=== PATIENT | female | born 1980 | race Caucasian/White ===

== ENCOUNTER 2017-01-12 06:18 | Day surgery (SDC) | payer OTHER ==
[~2017-01-12 06:18] MED LIST: Buffered Lidocaine 1% SYR 3ML* 3 ML/SYR SYRINGE INTRADERM ONE; Dexamethasone IV* 4 MG/ML 1 ML (4 MG) IV SLOW PU ONE; Dexamethasone IV* 4 MG/ML 1 ML (4 MG) ONE; Famotidine IV* 10 MG/ML 2 ML (20 mg) IV ONE; Famotidine IV* 10 MG/ML 2 ML (20 mg) ONE
[2017-01-12 06:26] LABS: Manual Entry Verification CAR0052; UR Preg Internal Control QC Line Present; UR Preg Kit Lot# 6060104
[2017-01-12 07:20] LABS: Hematocrit 37 % (35-47); Hemoglobin 12.6 g/dl (12.0-16.0); Mean Corpuscular HGB Conc 34 g/dl (31-36); Mean Corpuscular Hemoglobin 30 pg (27-31); Mean Corpuscular Volume 89 fL (80-97); Mean Platelet Volume 9 um3 (7.4-10.4); Red Blood Count 4.15 10^6/ul (4.0-5.4); Red Cell Distribution Width 14 % (10.5-15); White Blood Count 6.1 10^3/ul (3.5-10.8)
[2017-01-12] MEDS ORDERED: Ketorolac INJ* 30 MG/ML 1 ML VIAL ONE (07:22)
[2017-01-12] MEDS ORDERED: Midazolam* 1 MG/ML 5 ML VIAL (5 MG) ONE (07:22)
[2017-01-12] MEDS ORDERED: Lidocaine 2% PF * 5 ML VIAL ONE (07:22)
[2017-01-12] MEDS ORDERED: Atracurium* 10 MG/ML 10 ML VIAL ONE (07:22)
[2017-01-12] MEDS ORDERED: Propofol* 10 MG/ML 20 ML BTL IV PUSH ONE (07:22)
[2017-01-12] MEDS ORDERED: fentaNYL* 50 MCG/ML 5 ML VIAL (250 MCG VIAL) ONE (07:22)
[2017-01-12] MEDS ORDERED: Ondansetron INJ* 2 MG/ML VIAL ONE (07:22)
[2017-01-12] MEDS ORDERED: Bupivacaine 0.5% W/EPI SDV* 30 ML VIAL ONE (07:23)
[2017-01-12] MEDS ORDERED: Methylene Blue 1%* 10 ML VIAL ONE (07:29)
[2017-01-12] MEDS ORDERED: oxyCODONE/Acetamin 5/325 MG* TAB PO PRN (08:26)
[2017-01-12] MEDS ORDERED: HYDROmorphone INJ* 1 MG/ML CARPUJECT SYRINGE IV PRN (08:26)
[2017-01-12] MEDS ORDERED: Ondansetron INJ* 2 MG/ML VIAL IV PRN (08:26)
[2017-01-12] MEDS ORDERED: DiMENhydriNATE IV* 50 MG/ML VIAL IV PUSH PRN (08:26)
[2017-01-12] MEDS ORDERED: fentaNYL* 50 MCG/ML 2 ML VIAL (100 MCG VIAL) IV PRN (08:26)
[2017-01-12] MEDS ORDERED: fentaNYL* 50 MCG/ML 2 ML VIAL (100 MCG VIAL) ONE (08:28)
[2017-01-12 10:28] VITALS: BP 111/69
[2017-01-12] MEDS ORDERED: oxyCODONE/Acetamin 5/325 MG* TAB ONE (10:46)
--- NOTE | 2017-01-12 10:57 | OP ---
OPERATIVE REPORT: DATE OF OPERATION: 01/12/17 DATE OF : 82 SURGEON: Willi Campuzano MD. HOUSEKEEPING AIDE: None. ANESTHESIA: General endotracheal tube. PRE-OP DIAGNOSES: Endometriosis, infertility. POST-OP DIAGNOSES: Endometriosis, infertility. OPERATIVE PROCEDURE: Laparoscopy, cautery of endometriosis, biopsy of endometriosis, lysis of adhes ions. ESTIMATED BLOOD LOSS: Minimal. SPECIMEN: Serosal inflammation, suspected endometriosis. FINDINGS: On exam under anesthesia, uterus was anteverted. There were no adnexal masses. Cervix an d vulva appeared normal on laparoscopy. The anterior bladder flap was normal. The cul-de-sac was c lear. The uterosacral ligaments on the left contained a Masters window, but there was scarring aline g the serosa, but no obvious implants. The uterine body contained inflammatory exudate which was bi opsied and the tubes were mobile. The ovaries were loosely adherent. Adhesions to the mesosalpinx and the ovarian fossa. Liver surface was smooth. The appendix could not be well visualized due to the retrocecal location. DESCRIPTION OF PROCEDURE: The patient identified, procedure identified as a diagnostic laparoscopy. The patient was taken to the operating room and prepped and draped in the usual fashion in the tho derek lithotomy position under general anesthesia. A small infraumbilical incision was made and Veres s needle was inserted through this. The abdomen was insufflated to 15 mmHg. The Veress needle was removed. Trocars inserted. Trocars were removed from the sheath and a laparoscope was inserted and the above findings were noted. A second incision was made 2 cm above the pubic symphysis in the mi dline and a second trocar was inserted under direct visualization. A third trocar was placed on the left abdominal sidewall approximately 8 cm lateral to the umbilicus and a third trocar was inserted under direct visualization. A QuovoView manipulator had been placed at the beginning of the proced ure. This was used to manipulate the uterus. Lysis of adhesions was done using the unipolar scisso rs and cautery of the serosa of the uterine body where there was inflammation was undertaken using u nipolar scissors. Chromotubation was obtained with both tubes spilling well. All instruments remove d from the abdomen. Abdomen was deflated with CO2. The skin was closed using skin glue and the Kendall arView was removed from the vagina. All sponge and instrument counts were correct and the patient w as returned to the recovery room in stable condition. [id number] #: [id number]
== END 2017-01-12 10:55 | disposition home or self-care (01) ==
LOC: OR 06:18
PROVIDERS: ATTEND Obstetrics & Gynecology
DX: N80.0 Endometriosis of uterus (principal); N97.9 Female infertility, unspecified; R10.2 Pelvic and perineal pain; N94.9 Unspecified condition associated with female genital organs and menstrual cycle; F17.210 Nicotine dependence, cigarettes, uncomplicated
CPT/HCPCS: 36415; 81025; 85025; 86850; 86900; 86901; 88305; A9270-GY; J1100; J1885; J2250; J2405; J2704; J3010

== ENCOUNTER 2022-12-06 07:22 | Observation (INO) ==
[2022-12-06] MEDS ORDERED: LORazepam 2 mg VIAL 1 ml ONE ×2 (07:26→07:27)
[2022-12-06] MEDS ORDERED: Haloperidol 5 mg/ml SDV IV/IM 5 MG/ML AMP ONE (07:27)
[2022-12-06] MEDS ORDERED: Ketamine HCL 50 mg/ml 10 ml VIAL (500 MG) IM ONE ×2 (07:57→07:58)
[2022-12-06 09:02] LABS: Hematocrit 28 % (35-47); Hemoglobin 8.2 g/dL (12.0-16.0); Red Blood Count 4.05 10^6 /uL (3.70-4.87); White Blood Count 17.1 10^3/uL (3.5-10.8)
[2022-12-06 09:03] LABS: Mean Corpuscular HGB Conc 29 g/dL (31-36); Mean Corpuscular Hemoglobin 20 pg (27-31); Mean Platelet Volume 7.5 fL (7.4-10.4); Platelet Count 353 10^3/uL (150-450); Red Cell Distribution Width 20 % (10-15)
[2022-12-06 09:08] LABS: INR 0.97 (0.88-1.18)
[2022-12-06] MEDS ORDERED: Acetaminophen IV 1 GM/100ML 1,000 MG/100 ML BAG IV ONE (09:08)
[2022-12-06] MEDS ORDERED: NS 0.9% 1000 ml BAG 2,000 ML IV ONE (09:19)
[2022-12-06 09:28] LABS: ABS Lymphocytes 0.6 10^3/ul (1.0-4.8); ABS Monocytes 0.4 10^3/ul (0-0.8); Lymphocyte % 3.6 %; Mean Corpuscular Volume 70 fL (80-97)
[2022-12-06 09:57] LABS: Calcium 8.6 mg/dL (8.6-10.3); Magnesium 1.9 mg/dL (1.9-2.7); Potassium 4.4 mmol/L (3.5-5.0); Total Bilirubin 0.3 mg/dL (0.2-1.0)
[2022-12-06 10:03] LABS: Creatinine, Serum 0.63 mg/dL (0.51-0.95); Globulin 2.5 g/dL (2-4); Total Protein 7.5 g/dL (6.4-8.9); eGFR CKD-EPI 114.2 (>60)
[2022-12-06 10:24] LABS: Urine Appearance Cloudy; Urine Bilirubin Negative (Negative); Urine Blood Negative (Negative); Urine Color Yellow; Urine Glucose Negative (Negative); Urine Ketones 1+ (Negative); Urine Nitrite Negative (Negative); Urine Protein 1+(30 mg/dL) (Negative); Urine Specific Gravity 1.014 (1.002-1.030); Urine Urobilinogen Negative (Negative)
[2022-12-06 10:38] LABS: Urine Bacteria 1+ (Absent); Urine Red Blood Cell Trace(0-2/hpf) (Absent); Urine Squamous Epithelial Cell Present (Absent); Urine White Blood Cell Trace(0-5/hpf) (Absent)
[2022-12-06 11:03] LABS: C Reactive Protein 3.24 mg/L (<8.01)
[2022-12-06] MEDS ORDERED: Iohexol 350 (CONTRAST) 500 ML MDV IV ONE (11:12)
[2022-12-06] MEDS ORDERED: Thiamine 100 MG/ML 2 ml VIAL 100 MG, Folic Acid IV 1 MG, Multiple Vitamin IV ADULT 10 M... IV ONE (11:42)
[2022-12-06 12:39] LABS: Venous Bicarbonate HCO3 18.8 mmol/L (24-28)
[2022-12-06 13:30] LABS: Urine Benzodiazepine Screen None Detected (None Detect); Urine Buprenorphine Screen None Detected (None Detect); Urine Cannabinoids Screen None Detected (None Detect); Urine Fentanyl Screen None Detected (None Detect); Urine Hydrocodone Screen None Detected (None Detect); Urine Opiates Screen None Detected (None Detect)
[2022-12-06 14:22] LABS: TSH Ultra Thyroid Stim Horm 0.75 mcIU/mL (0.34-5.60)
[2022-12-06] MEDS ORDERED: Thiamine 100 MG/ML 2 ml VIAL (200 mg) IM ONE (17:23)
[2022-12-06] MEDS ORDERED: Lactated Ringers 1000 ml BAG 1,000 ML IV ONE (17:25)
[2022-12-06] MEDS ORDERED: Lorazepam PYXIS KEY PRN (20:22)
[2022-12-06] MEDS ORDERED: LORazepam 2 mg VIAL 1 ml IV PUSH PRN (20:22)
[2022-12-06] MEDS ORDERED: Gadoteridol (CONTRAST) 279.3 MG/ML 10 ML IV ONE (22:04)
[2022-12-07 06:09] LABS: ABS Lymphocytes 1.6 10^3/ul (1.0-4.8); ABS Monocytes 0.5 10^3/ul (0-0.8); ABS Neutrophils 5.9 10^3/ul (1.5-7.7); Eosinophil % 0.1 %; Hematocrit 23 % (35-47); Hemoglobin 6.7 g/dL (12.0-16.0); Lymphocyte % 20.3 %; Mean Corpuscular HGB Conc 30 g/dL (31-36); Mean Corpuscular Hemoglobin 20 pg (27-31); Mean Corpuscular Volume 69 fL (80-97); Mean Platelet Volume 7.3 fL (7.4-10.4); Platelet Count 253 10^3/uL (150-450); Red Blood Count 3.27 10^6 /uL (3.70-4.87); Red Cell Distribution Width 19 % (10-15); White Blood Count 8.1 10^3/uL (3.5-10.8)
[2022-12-07 06:10] LABS: Calcium 8.1 mg/dL (8.6-10.3); Creatinine, Serum 0.6 mg/dL (0.51-0.95); Potassium 3.4 mmol/L (3.5-5.0); eGFR CKD-EPI 115.6 (>60)
[2022-12-07] MEDS ORDERED: Lactated Ringers 1000 ml BAG 1,000 ML IV ONE (08:21)
[2022-12-07] MEDS ORDERED: Potassium Chlor 20 meq TAB.ER PO ONE (08:22)
[2022-12-07] MEDS ORDERED: VILAZODONE 20 MG PO SCH (08:30)
[2022-12-07] MEDS ORDERED: Multivitamins/Minerals TAB PO SCH (09:00)
[2022-12-07 15:19] VITALS: BP 107/71
== END 2022-12-07 17:00 | disposition home or self-care (01) ==
LOC: EDBD → MERGE 07:22 → EDHOLD 07:22 → ED 07:22 → SSU 16:11
PROVIDERS: ADMIT Hospitalist; ATTEND Hospitalist

== ENCOUNTER 2022-12-18 01:45 | Inpatient (IN) ==
[2022-12-18 02:28] LABS: Hematocrit 26 % (35-47); Hemoglobin 7.7 g/dL (12.0-16.0); Mean Corpuscular HGB Conc 30 g/dL (31-36); Mean Corpuscular Hemoglobin 21 pg (27-31); Mean Corpuscular Volume 69 fL (80-97); Platelet Count 399 10^3/uL (150-450); Red Cell Distribution Width 19 % (10-15); White Blood Count 4.3 10^3/uL (3.5-10.8)
[2022-12-18 02:54] LABS: ABS Basophils 0.1 10^3/ul (0-0.2); ABS Eosinophils 0.1 10^3/ul (0-0.6); ABS Lymphocytes 1.9 10^3/ul (1.0-4.8); ABS Monocytes 0.3 10^3/ul (0-0.8); ABS Neutrophils 1.9 10^3/ul (1.5-7.7); Anisocytosis 1+; Eosinophil % 1.4 %; Lymphocyte % 45.2 %
[2022-12-18 02:55] LABS: Microcytosis 3+
[2022-12-18 02:56] LABS: Hypochromasia 1+; Polychromasia 1+
[2022-12-18 03:05] LABS: ALT 36 U/L (7-52); AST 14 U/L (13-39); Acetaminophen < 15 mcg/mL; Albumin 4.3 g/dL (3.2-5.2); Albumin/Globulin Ratio 1.7 (1-3); Alcohol, S 173 mg/dL (<13); Alkaline Phosphatase 47 U/L (35-149); Anion Gap 8 mmol/L (2-11); Blood Urea Nitrogen 7 mg/dL (6-24); CO2 Carbon Dioxide 25 mmol/L (22-32); Calcium 8.6 mg/dL (8.6-10.3); Chloride 107 mmol/L (101-111); Creatinine, Serum 0.54 mg/dL (0.51-0.95); Globulin 2.5 g/dL (2-4); Glucose 95 mg/dL (70-100); Salicylate < 2.50 mg/dL (<30); Sodium 140 mmol/L (135-145); Total Protein 6.8 g/dL (6.4-8.9); eGFR CKD-EPI 118.5 (>60)
[2022-12-18 03:18] LABS: TSH Ultra Thyroid Stim Horm 0.85 mcIU/mL (0.34-5.60)
[2022-12-18 07:38] LABS: Urine Appearance Clear; Urine Bilirubin Negative (Negative); Urine Blood Negative (Negative); Urine Color Straw; Urine Glucose Negative (Negative); Urine Ketones Negative (Negative); Urine Nitrite Negative (Negative); Urine Protein Negative (Negative); Urine Specific Gravity 1.004 (1.002-1.030); Urine Urobilinogen Negative (Negative)
[2022-12-18 07:44] LABS: Urine Benzodiazepine Screen None Detected (None Detect); Urine Cannabinoids Screen None Detected (None Detect); Urine Opiates Screen None Detected (None Detect)
[2022-12-18] MEDS ORDERED: Al Hydrox/Mg Hydrox/Simet LIQ 30 ML UDC PO PRN (11:25)
[2022-12-18] MEDS: Multivitamins/Minerals TAB PO SCH (19:47)
[2022-12-18] MEDS: CMC:Vilazodone 40 mg TAB (NF) PO SCH (21:23)
[2022-12-18] MEDS: Nicotine PATCH 21 MG/24 HR PATCH TRANSDERM SCH (21:23)
[2022-12-19] MEDS: Nicotine GUM 4MG FRUIT FLAVOR PO PRN ×6 (01:00→20:28)
[2022-12-19 08:01] LABS: HDL Cholesterol 37.8 mg/dL
[2022-12-19] MEDS: CMC:Vilazodone 40 mg TAB (NF) PO SCH (08:45)
[2022-12-19] MEDS: Cholecalciferol (VIT D3) 1,000 unit TAB PO SCH (08:46)
[2022-12-19] MEDS: Multivitamins/Minerals TAB PO SCH (08:47)
[2022-12-19] MEDS: Nicotine PATCH 21 MG/24 HR PATCH TRANSDERM SCH (10:10)
[2022-12-20] MEDS: Nicotine GUM 4MG FRUIT FLAVOR PO PRN (06:44)
[2022-12-20] MEDS: Multivitamins/Minerals TAB PO SCH (08:20)
[2022-12-20] MEDS: CMC:Vilazodone 40 mg TAB (NF) PO SCH (08:20)
[2022-12-20] MEDS: Cholecalciferol (VIT D3) 1,000 unit TAB PO SCH (08:20)
[2022-12-20] MEDS: Nicotine PATCH 21 MG/24 HR PATCH TRANSDERM SCH (08:23)
[2022-12-20 09:54] VITALS: BP 110/71
== END 2022-12-20 12:00 | disposition home or self-care (01) | DRG 351 ==
LOC: ED 01:45 → EDHOLD 11:25 → BSU 17:13
PROVIDERS: ADMIT Psychiatry & Neurology Psychiatry; ATTEND Psychiatry & Neurology Psychiatry

== ENCOUNTER 2023-12-18 23:06 | Inpatient (IN) ==
[2023-12-18] MEDS ORDERED: Rocuronium 50 mg VIAL 10 mg/ml 5 ml VIAL (50 mg) ONE (23:23)
[2023-12-18] MEDS ORDERED: Propofol 10 mg/ml 100 ML BTL 1,000 MG/100 ML BTL ONE (23:25)
[2023-12-18] MEDS ORDERED: Succinylcholine 200 mg VIAL 20 mg/ml 10 ml VIAL (200 mg) ONE (23:25)
[2023-12-18] MEDS ORDERED: HYDROmorphone 1 MG/1 ML SYRINGE ONE (23:28)
[2023-12-18] MEDS: Succinylcholine 200 mg VIAL 20 mg/ml 10 ml VIAL (200 mg) IV ONE (23:28)
[2023-12-18] MEDS: HYDROmorphone 1 MG/1 ML SYRINGE IV ONE (23:30)
[2023-12-18] MEDS: Lactated Ringers 1000 ml BAG 1,000 ML IV ONE (23:30)
[2023-12-18] MEDS: Etomidate 20 mg/10 ml 2 MG/ML 10 ml VIAL IV ONE (23:38)
[2023-12-18 23:52] LABS: Venous Bicarbonate HCO3 19.1 mmol/L (24-28)
[2023-12-18 23:55] LABS: ABS Basophils 0.1 10^3/uL (0.0-0.1); ABS Eosinophils 0.1 10^3/uL (0.0-0.5); ABS Lymphocytes 2.9 10^3/uL (1.0-4.8); ABS Monocytes 0.4 10^3/uL (0.0-0.9); ABS Neutrophils 3.3 10^3/uL (1.5-7.6); ABS Nucleated RBC 0.01 10^3/ul; Eosinophil % 1.1 %; Hematocrit 35.5 % (35-45); Hemoglobin 11.6 g/dL (11.5-14.3); Lymphocyte % 42.8 %; Mean Corpuscular Hemoglobin 25.8 pg (27-33); Mean Corpuscular Hgb Conc 32.7 g/dL (31-36); Mean Corpuscular Volume 78.8 fL (80-97); Mean Platelet Volume 7.6 fL (7.5-11.2); Nucleated Red Blood Cells % 0.1 %/100WBC (0.0-0.8); Platelet Count 370 10^3/uL (150-450); Red Blood Count 4.51 10^6/uL (3.63-4.92); Red Cell Distribution Width 21.7 % (12-17); White Blood Count 6.8 10^3/uL (3.8-11.8)
[2023-12-18 23:57] LABS: Urine Appearance Clear; Urine Bilirubin Negative (Negative); Urine Blood Negative (Negative); Urine Color Colorless; Urine Glucose Negative (Negative); Urine Ketones Negative (Negative); Urine Nitrite Negative (Negative); Urine Protein Negative (Negative); Urine Specific Gravity 1.004 (1.002-1.030); Urine Urobilinogen Negative (Negative)
[2023-12-19] MEDS ORDERED: Charcoal ACTIVATED 50 GM/240 ML BTL PO ONE (00:06)
[2023-12-19 00:14] LABS: ALT 14 U/L (7-52); AST 17 U/L (13-39); Albumin 4.6 g/dL (3.2-5.2); Albumin/Globulin Ratio 1.6 (1-3); Alkaline Phosphatase 41 U/L (35-149); Anion Gap 11 mmol/L (2-16); Blood Urea Nitrogen 7 mg/dL (6-24); CO2 Carbon Dioxide 18 mmol/L (22-32); Calcium 8.4 mg/dL (8.6-10.3); Chloride 110 mmol/L (101-111); Creatinine, Serum 0.54 mg/dL (0.51-0.95); Globulin 2.9 g/dL (2-4); Glucose 131 mg/dL (70-100); Potassium 3.6 mmol/L (3.5-5.0); Sodium 139 mmol/L (135-145); Total Bilirubin 0.2 mg/dL (0.2-1.0); Total Protein 7.5 g/dL (6.4-8.9); eGFR CKD-EPI 117.8 (>60)
[2023-12-19 00:15] LABS: Lithium < 0.16 mmol/L (0.6-1.2); Salicylate < 2.50 mg/dL (<30)
[2023-12-19 00:19] LABS: High Sens Troponin Baseline < 3 pg/mL (<15)
[2023-12-19 00:21] LABS: HCG Pregnancy < 0.60 mIU/mL
[2023-12-19 00:29] LABS: TSH Ultra Thyroid Stim Horm 1.04 mcIU/mL (0.34-5.60)
[2023-12-19 00:31] LABS: Urine Benzodiazepine Screen None Detected (None Detect); Urine Cannabinoids Screen None Detected (None Detect); Urine Opiates Screen None Detected (None Detect)
[2023-12-19] MEDS: Propofol 10 mg/ml 100 ML BTL 1,000 MG/100 ML BTL IV SCH (00:39)
[2023-12-19] MEDS: Charcoal ACTIVATED 25 GM/120 ML BTL PO ONE (00:57)
[2023-12-19 01:00] LABS: Acetaminophen < 15 mcg/mL
[2023-12-19] MEDS ORDERED: fentaNYL 100 mcg/2 ml 50 MCG/ML VIAL IV SLOW PU PRN (01:19)
[2023-12-19 01:24] LABS: Alcohol, S 229 mg/dL (<13)
[2023-12-19] MEDS: Lactated Ringers 1000 ml BAG 1,000 ML IV ONE ×2 (01:39→03:20)
[2023-12-19 02:14] LABS: High Sensitivity Troponin 1 Hr < 3 pg/mL (<15)
[2023-12-19] MEDS: Pantoprazole VIAL 40 MG VIAL IV SCH (02:37)
[2023-12-19 04:08] LABS: Resp Rate 16
[2023-12-19 04:11] LABS: PCO2 Arterial 39 mmHg (35-45); PO2 Arterial 96 mmHg (80-100)
[2023-12-19] MEDS: Chlorhexidine MOUTHWASH 0.12% 15 ML UDC SWISH SPIT SCH (06:27)
[2023-12-19 06:29] LABS: ABS Basophils 0.1 10^3/uL (0.0-0.1); ABS Lymphocytes 1.6 10^3/uL (1.0-4.8); ABS Monocytes 0.5 10^3/uL (0.0-0.9); ABS Neutrophils 6.1 10^3/uL (1.5-7.6); ABS Nucleated RBC 0.02 10^3/ul; Eosinophil % 0.2 %; Hemoglobin 10.4 g/dL (11.5-14.3); Lymphocyte % 19.3 %; Mean Corpuscular Hgb Conc 33.6 g/dL (31-36); Mean Corpuscular Volume 80.3 fL (80-97); Mean Platelet Volume 7.8 fL (7.5-11.2); Nucleated Red Blood Cells % 0.2 %/100WBC (0.0-0.8); Platelet Count 267 10^3/uL (150-450); Red Blood Count 3.86 10^6/uL (3.63-4.92); Red Cell Distribution Width 22.3 % (12-17); White Blood Count 8.3 10^3/uL (3.8-11.8)
[2023-12-19 06:49] LABS: Anion Gap 10 mmol/L (2-16); Blood Urea Nitrogen 6 mg/dL (6-24); CO2 Carbon Dioxide 16 mmol/L (22-32); Calcium 7.6 mg/dL (8.6-10.3); Chloride 106 mmol/L (101-111); Creatinine, Serum 0.43 mg/dL (0.51-0.95); Glucose 111 mg/dL (70-100); Sodium 132 mmol/L (135-145); eGFR CKD-EPI 124.5 (>60)
[2023-12-19] MEDS: Enoxaparin 40 MG/0.4 ML SYR SUBCUT SCH (07:37)
[2023-12-19 08:45] LABS: Hemoglobin 10.1 g/dL (11.5-14.3); Mean Corpuscular Hgb Conc 32.6 g/dL (31-36); Mean Corpuscular Volume 79.7 fL (80-97); Mean Platelet Volume 7.5 fL (7.5-11.2); Platelet Count 273 10^3/uL (150-450); Red Blood Count 3.89 10^6/uL (3.63-4.92); Red Cell Distribution Width 22.3 % (12-17); White Blood Count 8.3 10^3/uL (3.8-11.8)
[2023-12-19 09:00] LABS: Magnesium 1.8 mg/dL (1.9-2.7); Potassium Redraw 3.8 mmol/L (3.5-5.0)
[2023-12-19] MEDS: Dexmedetomidine 1,000 MCG in NS 0.9% 250 ml 240 ML IV SCH (12:43)
[2023-12-19] MEDS: LORazepam 2 mg VIAL 1 ml IV PUSH SCH (21:21)
[2023-12-19] MEDS: Furosemide 40 mg/4 ml IV VIAL IV ONE (21:21)
[2023-12-20] MEDS: diazePAM INJ CARPUJECT 5 MG/ML SYRINGE IV ONE ×3 (00:39→05:15)
[2023-12-20] MEDS: diazePAM INJ CARPUJECT 5 MG/ML SYRINGE ONE (00:43)
[2023-12-20] MEDS: Acetaminophen IV 1 GM/100ML 1,000 MG/100 ML BAG IV PRN (05:03)
[2023-12-20] MEDS: Acetaminophen IV 1 GM/100ML 1,000 MG/100 ML BAG IV ONE (05:05)
[2023-12-20 05:41] LABS: ABS Basophils 0.1 10^3/uL (0.0-0.1); ABS Lymphocytes 1.7 10^3/uL (1.0-4.8); ABS Monocytes 0.6 10^3/uL (0.0-0.9); ABS Neutrophils 8.4 10^3/uL (1.5-7.6); Eosinophil % 0.3 %; Hematocrit 30.8 % (35-45); Hemoglobin 10.1 g/dL (11.5-14.3); Lymphocyte % 15.5 %; Mean Corpuscular Hemoglobin 25.7 pg (27-33); Mean Corpuscular Hgb Conc 32.8 g/dL (31-36); Mean Corpuscular Volume 78.5 fL (80-97); Mean Platelet Volume 7.6 fL (7.5-11.2); Platelet Count 271 10^3/uL (150-450); Red Blood Count 3.92 10^6/uL (3.63-4.92); Red Cell Distribution Width 21.4 % (12-17); White Blood Count 10.7 10^3/uL (3.8-11.8)
[2023-12-20 06:00] LABS: Calcium 8.8 mg/dL (8.6-10.3); Creatinine, Serum 0.71 mg/dL (0.51-0.95); Magnesium 1.9 mg/dL (1.9-2.7); eGFR CKD-EPI 108.8 (>60)
[2023-12-20] MEDS: Potassium Chloride LIQUID 20 MEQ/15 ML LIQUID PO ONE (07:25)
[2023-12-20] MEDS: Magnesium Sulfate 2 gm BAG 2 GM/50 ML BAG IVPB ONE ×2 (07:26→09:00)
[2023-12-20] MEDS: KCL 20 MEQ/100 ML IVPREMIX 20 MEQ/100 ML BAG IV SCH (07:36)
[2023-12-20] MEDS ORDERED: Multivitamins/Minerals TAB PO SCH (09:00)
[2023-12-20] MEDS: Dexmedetomidine 1,000 MCG in NS 0.9% 250 ml 240 ML IV SCH (09:57)
[2023-12-20] MEDS: Multivitamins/Minerals TAB PO SCH (09:59)
[2023-12-20] MEDS ORDERED: KCL 20 MEQ/100 ML IVPREMIX 20 MEQ/100 ML BAG IV SCH (11:00)
[2023-12-20] MEDS: Nicotine PATCH 7 MG/24 HR PATCH TRANSDERM SCH (12:38)
[2023-12-20] MEDS: Thiamine 100 MG/ML 2 ml VIAL (200 mg) IM ONE (14:39)
[2023-12-20] MEDS: Thiamine 100 MG/ML 2 ml VIAL 100 MG in NS 0.9% 50 ML 50 ML IV SCH (15:07)
[2023-12-20] MEDS: VILAZODONE 20 MG PO SCH (20:16)
[2023-12-21 05:09] LABS: Anion Gap 13 mmol/L (2-16); Blood Urea Nitrogen 9 mg/dL (6-24); CO2 Carbon Dioxide 21 mmol/L (22-32); Calcium 8.8 mg/dL (8.6-10.3); Chloride 106 mmol/L (101-111); Creatinine, Serum 0.72 mg/dL (0.51-0.95); Glucose 84 mg/dL (70-100); Sodium 140 mmol/L (135-145)
[2023-12-21] MEDS: CMCS:NORETHINDRONE ACETATE 5 MG TAB (NF) PO SCH (11:10)
[2023-12-21] MEDS: Potassium Chlor 20 meq TAB.ER PO SCH (11:10)
[2023-12-21 12:40] LABS: Rapid COVID-19 Molecular Undetected (Undetected)
[2023-12-21 14:21] VITALS: BP 121/78
[2023-12-21] MEDS ORDERED: CMC:Vilazodone 40 mg TAB (NF) PO SCH (21:00)
== END 2023-12-21 16:00 | DRG 812 ==
LOC: ED 23:06 → EDHOLD 12-19 00:19 → ICU 12-19 03:05
PROVIDERS: ADMIT Internal Medicine Pulmonary Disease; ATTEND Internal Medicine Pulmonary Disease